=== PATIENT | female | born 1975 | race Caucasian/White ===

== ENCOUNTER → 2023-09-06 14:29 | Outpatient (REF) | payer OTHER, SELFPAY | LOC: RAD 14:29 | PROVIDERS: ATTENDING PHYSICIAN Family Medicine | DX: R14.0 Abdominal distension (gaseous) (principal) | CPT/HCPCS: 74177; Q9967 ==

== ENCOUNTER → 2023-12-14 09:12 | Outpatient (REF) | payer OTHER, SELFPAY | LOC: WDC 09:12 | PROVIDERS: ATTENDING PHYSICIAN Nurse Practitioner Women's Health; FAMILY PHYSICIAN Family Medicine | DX: N64.4 Mastodynia (principal) | CPT/HCPCS: 76642; 77062; 77066 ==

== ENCOUNTER 2024-08-24 23:23 | Observation (INO) | payer OTHER, SELFPAY ==
[2024-08-24 20:32] VITALS: BP 142/78
[2024-08-24 20:52] VITALS: BMI 24.0
[2024-08-24 21:00] VITALS: BP 126/72
[2024-08-24 21:39] LABS: % Basophils 0.9 % (0-2); % Eosinophils 3.9 % (0-6); % Immature Granulocytes 0.4 % (0-0.5); % Lymphocytes 27.9 % (20.5-51.1); % Monocytes 8.2 % (1.7-9.3); % Neutrophils 58.7 % (42.2-75.2); Absolute Basophils 0.1 10^3/uL (0-0.2); Absolute Eosinophils 0.3 10^3/uL (0-0.7); Absolute Lymphocytes 2.3 10^3/uL (1.2-3.4); Absolute Monocytes 0.7 10^3/uL (0.1-0.6); Absolute Neutrophils 4.8 10^3/uL (1.4-6.5); Hematocrit 36.6 % (37.0-47.0); Hemoglobin 12.9 g/dL (12.0-16.0); Mean Corp Hgb Conc. 35.2 g/dL (33.0-37.0); Mean Corpuscular Hgb 31.9 pg (27.0-31.0); Mean Corpuscular Volume 90.4 fL (81.0-99.0); Mean Platelet Volume 9.4 fL (7.4-10.4); Nucleated Red Blood Cells % 0 %; Platelet Count 198 10^3/uL (130-400); Red Blood Cell Count 4.05 10^6/uL (4.20-5.40); White Blood Cell Count 8.2 10^3/uL (4.8-10.8)
--- NOTE | 2024-08-24 21:50 | ED.GENMED ---
History of Present Illness
General
Chief Complaint: Numbness
Source: patient
Exam Limitations: none
Time Seen by Provider: 08/24/24 21:15
Nursing documentation reviewed up to this point in time: agreed with
History of Present Illness
History of Present Illness:
49-year-old female with no reported chronic medical issues presents to the ER for evaluation of left-sided numbness and chest discomfort. Patient reports that she started with numbness and tingling in her left arm. She says that this has
been constant since onset. She says that over the same stretch of time she has had intermittent chest discomfort which she describes as a tightness in her chest associated with palpitations. She says that today around 7 PM she started to also have
numbness in the left leg and with his constellation of symptoms came to the ER to be evaluated. She she does not feel weak on the left side she says. She denies any symptoms on the right side. She denies any headache. She denies any change in
her vision or speech. She denies any shortness of breath, cough or other complaints. Denies having had similar symptoms the past. She denies any known cardiac history, says that she saw [facility] for screening exams in the past but was told
that there were no significant findings.
Past History
Past History
ED Past Medical History: None
ED Past Surgical History: None
Social History
Tobacco: Non-smoker
Alcohol: Occasional
Personal:
Living: with family
Review of Systems
Review of Systems
All Other Systems: ROS reviewed and negative except as documented in HPI and ROS
Constitutional: Denies fever
Respiratory: Denies trouble breathing
Cardiac: Reports chest pain and palpitations
ABD/GI: Denies abdominal pain, nausea or vomiting
: Denies flank pain
Musculoskeletal: Denies neck pain or back pain
Neurological: Reports numbness; Denies dizzy, headache or weakness
Phy Exam
Physical Exam
Physical Exam:
General: Awake, alert, oriented x3; no acute distress
Head: Normocephalic, atraumatic
Eyes: Conjunctiva normal, EOMI, pupils equal round reactive to light bilaterally
Throat: Airway intact, handling secretions
Neck: Trachea midline, supple without meningismus
Lungs: Clear to auscultation bilaterally, no wheezing, rales, rhonchi
Heart: Regular rate and rhythm, no murmurs, gallops, or rubs
Abd: Soft, non distended, nontender, no palpable masses
Neuro: Cranial nerves intact, speech fluent no dysarthria aphasia, no limb ataxia, strength intact proximally and distally in the upper and lower extremities; subjective sensory deficit left upper and lower extremity
Extremities: No edema in extremities, equal pulses in all extremities
Scores
NIH Stroke Score
Level of Consciousness: 0 - Alert
LOC Questions: 0-Answers both correctly
LOC Commands: 0-Performs both correctly
Best Horizontal Gaze: 0-Normal
Visual Mckenzie: 0=Normal, no visual loss
Facial Palsy: 0=Normal, symmetrical
Motor - Right Arm: 0=No drift 10 seconds
Motor - Left Arm: 0=No drift 10 seconds
Motor - Right Le-No drift 5 seconds
Motor - Left Le-No drift 5 seconds
Limb Ataxia: 0-Absent
Sensation: 1-Mild loss
Best Language: 0-No aphasia
Dysarthria: 0-Normal
Extinction and Inattention: 0-No abnormality
Total Score:: 1
Thrombolytic Contraindication
Inclusion and Exclusion criteria reviewed: Yes
Reasons for NON-Tx with Thrombolytics ABSOLUTE Exclusions: Greater than 4.5 hrs from onset of sxs
Heart Failure Risk
Heart Failure Risk Score: Not Applicable
Heart Score for Chest Pain Patients
STEMI patient?: Not applicable
Withdrawal Assessment of Alcohol
Withdrawal Assessment Completed?: Not applicable
Course
Orders/Labs/Results
Orders:
Orders
08/24/24 20:34
Electrocardiogram (*1) Urgent
Reason for Study: Chest Pain
EKG- Treatment ONCE
08/24/24 21:31
Comprehensive Metabolic Panel Urgent
HCG, Serum Qualitative Screen Urgent
Comment: ADD ON
Magnesium Urgent
TSH Reflex To Free T4 Urgent
08/24/24 21:32
Complete Blood Count/With Diff Urgent
08/24/24 21:42
CT Head & Neck Angio W/wo IV Urgent
Comment:
Reason For Exam: left sided numb/weakness
08/24/24 22:00
Troponin I Urgent
08/24/24 22:06
Add On- LAB Urgent
Tests Added?: HCG qual
08/24/24 22:51
Consult Notification Routine
Specialty to Notify: Neurology
NEUROLOGY CONSULT Urgent
Consulting Provider: Bianka Balderas
Was physician already notified: No
Reason for consult: left sided numbness
08/24/24 23:06
Aspirin 325 mg PO NOW STA
Abnormal Lab Results
08/24/24
21:32
RBC 4.05 L 10^6/uL
(4.20-5.40)
Hct 36.6 L %
(37.0-47.0)
MCH 31.9 H pg
(27.0-31.0)
Absolute Monos (auto) 0.7 H 10^3/uL
(0.1-0.6)
08/24/24 21:32
08/24/24 21:31
Vital Signs
Initial and Last Documented VS:
Initial Vital Signs
Temp Pulse Resp Pulse Ox
36.8 C 76 18 99
08/24/24 20:29 08/24/24 20:29 08/24/24 20:29 08/24/24 20:29
Last Documented Vital Signs
Temp Pulse Resp BP Pulse Ox
36.8 C 73 13 129/68 100
08/24/24 20:29 08/24/24 23:13 08/24/24 23:13 08/24/24 23:12 08/24/24 23:13
MDM/Problems Addressed
Differential Diagnosis Includes:
Stroke, brain mass, brain bleed, dissection, complex migraine, MS, radiculopathy, electrolyte derangement
MDM/Problems Addressed:
49-year-old female presents for evaluation of left-sided numbness associated with occasional chest discomfort/palpitations�started with numbness/tingling in the left arm on and this evening started with symptoms in the left leg. Denies
weakness. Denies any other neurologic complaints. Occasional chest discomfort/palpitations as described. Will plan to place an IV check labs including a CBC and CMP. Will check thyroid studies. Check an EKG and a troponin. Will check CTA head
and neck. No stroke alert called with onset of symptoms greater than 24 hours ago.
Labs reviewed: CBC and CMP unremarkable. Troponin undetectable. EKG shows sinus rhythm. CTA head and neck shows basilar stenosis versus congenital hypoplasia but no LVO or other acute abnormalities. No change in symptoms on clinical
reassessment. Given distribution of symptoms will admit to rule out stroke/central process. Monitor on telemetry given her report of occasional palpitations. Treat with aspirin for now. Case discussed with hospitalist.
*Radiology
Radiology exam reviewed: radiology read reviewed
*Pulse Oximetry
Patient hypoxic: no
*EKG
Interpreted by ED Provider?: Yes
Heart Rate: 69
Rate: normal
Rhythm: sinus
[place]: normal axis
Interval: normal interval
QRS Pattern: normal QRS
Ischemia: no ischemia
*Critical Care Note
Total Time (30-74mins, 75-104mins- exclusive of procedures): Not Applicable
Data Reviewed
Source: patient
Patient Management
Discussion with other providers: Hospitalist (Discussed with hospitalist)
Escalation/DeEscalation of care consider admission/obs:
Admission indicated
ED Attending Note
-
Portions of this chart may have been created with voice recognition software.� Occasional wrong word or��sound alike� substitutions may have occurred due to the inherent limitations of voice recognition software.
Discharge Plan
Departure
Patient Disposition: Admit
Date of Disposition: 08/24/24
Time of Disposition: 23:12
Admit to doctor: Justino
Presentation/result/management discussed w/ accepting MD/DO: Hospitalist
Discharge Problem:
Left sided numbness
Referrals:
Rebecca Contreras MD [Family Provider] -
Interventions
Interventions:
*Risk Screen - Suicide Last Done: 08/24/24 20:52
*General Assessment Last Done: 08/24/24 20:31
*Neglect/Abuse Screening Last Done: 08/24/24 20:52
*ED- Fall Risk Assessment Last Done: 08/24/24 20:52
*ED COVID-19 Vaccine History Last Done: 08/24/24 20:31
ED- Neurological Assessment Last Done: 08/24/24 20:52
Discharge Date and Time
Print Language: PUERTO RICAN
[2024-08-24 21:57] LABS: ALT (SGPT) 18 U/L (0-35); AST (SGOT) 25 U/L (14-36); Albumin 4.7 g/dl (3.5-5.0); Alkaline Phosphatase 51 U/L (38-126); Blood Urea Nitrogen 10 mg/dl (7-17); Carbon Dioxide 27 mmol/L (22-30); Chloride 104 mmol/L (98-107); Estimated Creatinine Clearance 98 ml/min; Glucose 97 mg/dl (70-99); Magnesium 2.1 mg/dl (1.6-2.3); Potassium 3.9 mmol/L (3.5-5.1); Sodium 139 mmol/L (135-145); Total Bilirubin 0.7 mg/dl (0.2-1.3); Total Protein 7.1 g/dl (6.3-8.2); eGFR > 60.00
[2024-08-24 22:00] VITALS: BP 154/98
[2024-08-24 22:28] LABS: TSH Reflex To Free T4 4.52 uIU/ml (0.47-4.68)
[2024-08-24 22:31] LABS: Troponin I < 0.012 ng/ml
[2024-08-24 22:36] LABS: HCG, Serum Qualitative Screen Negative
[2024-08-24] MEDS: ASPIRIN 325 MG PO (23:10)
[2024-08-24 23:12] VITALS: BP 129/68
--- NOTE | 2024-08-24 23:43 | HPS.HSE ---
Family Physician
-
Family Physician: Rebecca Contreras
Chief Complaint
-
left sided numbness
History of Present Illness
49-year-old female past medical history SIBO presenting with left-sided numbness and chest discomfort. Started 3 days ago with numbness and tingling in her left arm. Symptoms have been constant since then. She has also had intermittent chest
discomfort described as tightness in her chest associated palpitations. Around 7 PM today she also started having numbness in the left leg. Denies any symptoms on the right side. Denies headache. Denies any change in speech or vision. Denies
vertigo. Denies shortness of breath or cough or other symptoms. Denies similar symptoms in the past. Denies any prior cardiac history.
Patient drinks alcohol occasionally. Denies smoking or any drugs.
Her grandmother had CVA.
Medical History
Past Medical History
Past Medical History: Reports None
Past Surgical History: Reports None
Social History
Tobacco: Non-smoker
Alcohol: Occasional
Drug: None
Family History
Family History: Not pertinent
Allergies / Home Medications
Allergies reflects when Allergies were last updated in [employer].
Home Medications with original date entered in [employer]
Allergy/Medication List:
Allergies
Allergy/AdvReac Type Severity Reaction Status Date / Time
No Known Allergies Allergy Unverified 11/21/10 13:43
Home Medications
No Meds [No Current Medications] 08/24/24
Review of Systems
-
History Source: Patient
A 12 point ROS was completed and negative except as noted: Yes
Constitutional: Reports No Symptoms
EENT: Reports No Symptoms
Respiratory: Reports No Symptoms
Cardiac: Reports No Symptoms
Abdomen/GI: Reports No Symptoms
: Reports No Symptoms
Musculoskeletal: Reports No Symptoms
Skin: Reports No Symptoms
Neurological: Reports See HPI
Endocrine: Reports No Symptoms
Hematologic/Lymphatic: Reports No Symptoms
Psych: Reports No Symptoms
Physical Exam
Vital Signs
Vital Signs
Temp Pulse Resp BP Pulse Ox
98.2 F 73 13 129/68 100
08/24/24 20:29 08/24/24 23:13 08/24/24 23:13 08/24/24 23:12 08/24/24 23:13
Physical Exam
General: Well Developed, Well Nourished and No Apparent Distress
HEENT: NormoCephalic, Moist mucous membranes and Atraumatic
Respiratory: Clear
Cardiac: S1/S2 and Regular Rhythm; No Murmur or Rub
GI: Soft, Non Tender, Non Distended and Normal Bowel Sounds; No Organomegaly
Rectal: Deferred by Provider
Musculoskeletal: No Clubbing, No Cyanosis and No Edema
Skin: No Rash
Neuro: Nonfocal/grossly intact
Laboratory Results
-
08/24/24 21:32
08/24/24 21:31
Laboratory Results
Total Bilirubin 0.7 mg/dl (0.2-1.3) 08/24/24 21:31
AST 25 U/L (14-36) 08/24/24 21:31
ALT 18 U/L (0-35) 08/24/24 21:31
Alkaline Phosphatase 51 U/L (38-126) 08/24/24 21:31
Troponin I < 0.012 ng/ml 08/24/24 22:00
Data Reviewed
-
Lab Data: Labs Reviewed by me
Old Records: Reviewed
Impression/Plan
-
IMPRESSION:
PLAN:
# Possible CVA
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
-NIH of 1 due to loss of sensation in the left side, no other deficits
-CTA head and neck shows multifocal stenosis of the distal basilar artery beginning after the origins of the bilateral superior cerebellar arteries and extending through the basilar tip which may represent hypoplasia, age-indeterminate dissection is
less likely
- Aspirin 325 mg given
- Give Plavix
- Check A1c and lipid panel
- Check MRI brain
- Neurology consulted
# Chest pressure/palpitations
-EKG unremarkable
-Telemetry monitoring
- Trend troponins
History of SIBO
Full code
DVT prophylaxis�SCDs
Regular diet
[2024-08-24] MEDS: PLAVIX 300 MG PO (23:54)
[2024-08-25] VITALS (8 sets, daily range): BP systolic 121–133; BP diastolic 68–87; PULSE 79; O2SAT 100; BMI 24.3
[2024-08-25 03:09] LABS: Troponin I < 0.012 ng/ml
[2024-08-25 06:20] LABS: Hematocrit 38.3 % (37.0-47.0); Hemoglobin 13.4 g/dL (12.0-16.0); Mean Corpuscular Hgb 31.7 pg (27.0-31.0); Mean Corpuscular Volume 90.5 fL (81.0-99.0); Mean Platelet Volume 9.4 fL (7.4-10.4); Platelet Count 196 10^3/uL (130-400); Red Blood Cell Count 4.23 10^6/uL (4.20-5.40); White Blood Cell Count 7.3 10^3/uL (4.8-10.8)
[2024-08-25 06:46] LABS: Blood Urea Nitrogen 7 mg/dl (7-17); Calcium 9.3 mg/dl (8.4-10.2); Carbon Dioxide 23 mmol/L (22-30); Chloride 108 mmol/L (98-107); Estimated Creatinine Clearance 98 ml/min; Glucose 94 mg/dl (70-99); HDL Cholesterol 87 mg/dl; LDL Cholesterol, Calculated 68 mg/dl; Magnesium 2.2 mg/dl (1.6-2.3); Potassium 4.2 mmol/L (3.5-5.1); Sodium 141 mmol/L (135-145); Total Cholesterol 165 mg/dl (50-199); Triglyceride 54 mg/dl (10-149); Very Low Density Lipoprotein 10 mg/dl (0-30); eGFR > 60.00
--- NOTE | 2024-08-25 07:40 | CON.NEURO ---
Consultation
Order
Date of Consultation: 08/25/24
Requesting Provider: Apolinar Shin MD
Reason for Consult: Left-sided numbness
Neurology Consultation Note.
HPI: This is a 49-year-old RH woman who presented to [facility] on August 24, 2024 with sensory symptoms and chest discomfort. According to the patient she developed chest tightness starting on , described as an intermittent
feeling like a band wrapped around her chest, left shoulder and forearm. On Monday night, she developed numbness in her left leg, which prompted her to seek medical attention. The leg numbness lasted for a couple of hours and extended all the way
down her leg. She initially thought it might be related to sleeping position or connected to arm pain from crocheting the previous weekend. The patient describes holding yarn with her left hand and needles in her right while crocheting, causing most
tension in her left arm. Although the numbness has resolved, she reports that her left leg still feels tight.
Ms. French denies experiencing radicular back pain, neck stiffness change in balance or sphincter function. She reportedly had unremarkable cardiac workup in the past.
ER VS: 142/78, 76, afebrile
EKG:NSR, QTc Int : 452 ms
PDMP: None
Labs: Normal sodium, glucose, LFTs, troponin, lipid panel, TSH
CT head wo contrast -no acute abnormalities
PMH:ALEXEI
PSH:none
SH: , vocational teacher; nonsmoker; social ETOH use
FH:CAD
All:NKDA
ROS: Constitutional: Negative. Negative for chills, fever and unexpected weight change.
HENT: Negative for ear pain, hearing loss, tinnitus and trouble swallowing.
Eyes: Negative. Negative for photophobia, pain and visual disturbance.
Respiratory: Negative for cough, choking and shortness of breath.
Cardiovascular: Positive for chest tightness
Gastrointestinal: Negative for abdominal pain and vomiting.
Endocrine: Negative. Negative for cold intolerance.
Genitourinary: Negative for dysuria, flank pain and urgency.
Musculoskeletal: Negative for back pain, gait problem, neck pain and neck stiffness.
Skin: Negative for rash.
Allergic/Immunologic: Negative. Negative for immunocompromised state.
Neurological: Positive for left arm and leg numbness
General: Well developed. In no acute distress.
Cardio: Regular rate and rhythm without murmur. Extremities are without cyanosis or edema.
Neuro:
Mental Status: Alert, oriented to person, place, and date. Normal attention and recall. Good fund of knowledge. Follows complex requests across the midline. Comprehension, naming, and repetition intact. Anxious mood
Cranial Nerves: Pupils are equally round and reactive to light. EOMs full. Visual [place] full to confrontation. No ptosis. No nystagmus. V1-V3 intact to light touch and pinprick bilaterally, symmetric. Face symmetric. Normal hearing AU. The
palate elevated well. SCMs and traps 5/5. Tongue midline. No dysarthria.
Motor: Normal bulk and tone. No pronator or arm drift. Strength 5/5 throughout. No clonus.
Reflexes: 3+ throughout the upper extremities and 3+ knees. 2/2 in AJs. Plantar responses flexor bilaterally. Positive Syeda's bilaterally
Sensory: Normal pinprick, vibration and JPS.
Coordination: No dysmetria or tremor.
Gait: deferred
Assessment and Plan:
I. Intermittent hemisensory symptoms
II. Cervical myelopathy
III. Intermittent chest tightness
-Continue Telemetry monitoring
-Please obtain C-spine MRI without gadolinium
-Please check vitamin B12, folate, [place], ESR, CRP, RPR
-DVT prophylaxis.
I personally reviewed all radiology and labs along with past medical records pertinent to current medical problems. Total time spent in patient care is 60 minutes.
Thank you for allowing us to participate in the care of this patient. We will continue to follow. Please do not hesitate to contact us with any questions or concerns.
Subjective/Objective
Subjective Data
Date of Service: August 25, 2024
Objective Data
Vital Signs
Temp Pulse Resp BP Pulse Ox
36.9 C 67 16 125/68 100
08/25/24 03:56 08/25/24 03:56 08/25/24 03:56 08/25/24 03:56 08/25/24 03:56
Lab Results
08/25/24 05:52
08/25/24 05:52
Sodium 141 mmol/L (135-145) 08/25/24 05:52
Potassium 4.2 mmol/L (3.5-5.1) 08/25/24 05:52
BUN 7 mg/dl (7-17) 08/25/24 05:52
Glucose 94 mg/dl (70-99) 08/25/24 05:52
Calcium 9.3 mg/dl (8.4-10.2) 08/25/24 05:52
LDL Cholesterol, Calc 68 mg/dl 08/25/24 05:52
Patient Allergies
No Known Allergies Allergy (Unverified 11/21/10 13:43)
Medications
-
Active Medications
Generic Name Dose Route Start Last Admin
Trade Name Freq PRN Reason Stop Dose Admin
Acetaminophen 650 mg 08/25/24 01:35
Acetaminophen 650 Mg Rectal Suppository RECTAL 09/22/24 01:34
Q4HPRN PRN
TAY, mild pain, or temp >100.4F
Acetaminophen 650 mg 08/25/24 01:35
Acetaminophen 325 Mg Tablet PO 09/22/24 01:34
Q4HPRN PRN
TAY, mild pain, or temp >100.4F
Aspirin 81 mg 08/25/24 08:00
Aspirin 81 Mg Chewable Tablet PO 09/22/24 07:59
DAILY MERRITT
Atorvastatin Calcium 40 mg 08/25/24 18:00
Atorvastatin (Lipitor) 40 Mg Tablet PO 09/22/24 17:59
QPM MERRITT
Clopidogrel Bisulfate 75 mg 08/25/24 08:00
Clopidogrel 75 Mg Tablet PO 09/22/24 07:59
DAILY MERRITT
Sodium Chloride 0 flush 08/25/24 02:00
Sodium Chloride 0.9% (Flush) Syringe IV 09/22/24 01:59
PER PROTOCOL MERRITT
Home Medications
�Medication �Instructions �Recorded
No Meds [No Current Medications] 08/24/24
Vital Signs and Labs
-
Vital Signs and Labs:
Vital Signs
Temp Pulse Resp BP Pulse Ox
36.9 C 67 16 125/68 100
08/25/24 03:56 08/25/24 03:56 08/25/24 03:56 08/25/24 03:56 08/25/24 03:56
Lab Results
08/25/24 05:52
08/25/24 05:52
Sodium 141 mmol/L (135-145) 08/25/24 05:52
Potassium 4.2 mmol/L (3.5-5.1) 08/25/24 05:52
BUN 7 mg/dl (7-17) 08/25/24 05:52
Glucose 94 mg/dl (70-99) 08/25/24 05:52
Calcium 9.3 mg/dl (8.4-10.2) 08/25/24 05:52
LDL Cholesterol, Calc 68 mg/dl 08/25/24 05:52
Medications
-
Medications:
Generic Name Dose Route Start Last Admin
Trade Name Freq PRN Reason Stop Dose Admin
Acetaminophen 650 mg 08/25/24 01:35
Acetaminophen 650 Mg Rectal Suppository RECTAL 09/22/24 01:34
Q4HPRN PRN
TAY, mild pain, or temp >100.4F
Acetaminophen 650 mg 08/25/24 01:35
Acetaminophen 325 Mg Tablet PO 09/22/24 01:34
Q4HPRN PRN
TAY, mild pain, or temp >100.4F
Aspirin 81 mg 08/25/24 08:00
Aspirin 81 Mg Chewable Tablet PO 09/22/24 07:59
DAILY MERRITT
Atorvastatin Calcium 40 mg 08/25/24 18:00
Atorvastatin (Lipitor) 40 Mg Tablet PO 09/22/24 17:59
QPM MERRITT
Clopidogrel Bisulfate 75 mg 08/25/24 08:00
Clopidogrel 75 Mg Tablet PO 09/22/24 07:59
DAILY MERRITT
Sodium Chloride 0 flush 08/25/24 02:00
Sodium Chloride 0.9% (Flush) Syringe IV 09/22/24 01:59
PER PROTOCOL MERRITT
Home Medications
-
Home Medications
No Meds [No Current Medications] 08/24/24
[2024-08-25] MEDS: LOW STRENGTH ASPIRIN 81 MG PO (08:43)
[2024-08-25] MEDS: PLAVIX 75 MG PO (08:43)
[2024-08-25 08:58] LABS: Troponin I < 0.012 ng/ml
[2024-08-25 11:10] LABS: Creatine Phosphokinase 39 U/L (30-135)
[2024-08-25 11:14] LABS: C-Reactive Protein < 5.00 mg/L (0.0-10.00)
[2024-08-25 11:28] LABS: Erythrocyte Sed Rate 11 mm/hour (0-20)
--- NOTE | 2024-08-25 12:08 | PTOTSP ---
Patient with good tolerance for functional mobility, transfers and elevations. Did not demonstrate LOB, dizziness or report any symptoms throughout.
Does not demonstrate need for further skilled therapy at this time and will be discharged.
If needs change, please re-consult.
--- NOTE | 2024-08-25 12:15 | W.PN.HOSP.TC ---
Today's Communication/Plan
-
Follow-up MRI C-spine
neurochecks
Assessment / Plan
Assessment / Plan
#Paresthesia of left upper extremity
-Differential diagnoses include peripheral neuropathy versus radiculopathy versus myelopathy
-NIHSS score 1 due to the loss of sensation on LUE; MRI brain today negative for CVA
-Was initiated on DAPT and high intensity statin due to concerns of hypoplastic basilar artery
-Neurology following, ordered MRI cervical spine w/o contrast, will follow-up results
-Will check vitamin B12 level, B1 levels, folate, magnesium level, ESR, CRP, RPR
-Consider outpatient follow-up for EMG/NCS if workup here negative
-Continue with neurochecks
#Multifocal stenosis of basilar artery
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
-MRI without any signs of CVA; does not seem to correlate with the paresthesia that brought her here
-Was initiated on DAPT and high intensity statin with concerns for CVA; MRI negative; Plavix held
-Will continue with high intensity statin and aspirin for now
#Chest pressure and palpitations
-Likely related to radiculopathy/myelopathy versus anxiety
-ECG was unremarkable, troponin negative x3
-Continue on telemetry
#H/O SIBO
-Not currently on any medications
-No known history of scleroderma or other associated conditions
-No signs of flare at this time
Diet: Regular
DVT prophylaxis: SQ Lovenox
CODE STATUS: Full code
Anticipated Discharge: Within 24 hours
Subjective/Interval History
-
Date of Service: August 25, 2024
Seen and examined at the bedside. No acute events reported overnight. AFVSS this morning
MRI of the brain was negative for any acute CVA findings. MRI C-spine pending
Denies any new complaints since admission
Objective Data
-
Labs:
Laboratory Results
08/25/24
05:52
WBC 7.3
Hgb 13.4
Hct 38.3
Plt Count 196
Sodium 141
Potassium 4.2
Chloride 108 H
Carbon Dioxide 23
BUN 7
Creatinine 0.6
Glucose 94
Calcium 9.3
Vital Signs:
Vital Signs
Temp Pulse Resp BP Pulse Ox
97.8 F 78 18 123/75 98
08/25/24 07:45 08/25/24 07:45 08/25/24 07:45 08/25/24 07:45 08/25/24 08:50
Review of Systems
-
History Source: Patient
All other systems: Reviewed and negative
Physical Exam
-
General: Well Developed, Well Nourished, No Apparent Distress and Comfortable
HEENT: Normocephalic, Atraumatic, Moist Mucous Membranes and Anicteric
Respiratory: Clear to Auscultation and Non Labored Respirations
Cardiac: Regular Rhythm and S1/S2; Negative Murmur, Rub or Gallop
GI: Soft, Nontender, Nondistended and Normal Bowel Sounds
Musculoskeletal: No Clubbing, No Cyanosis and No Edema
Skin: Warm and Dry; Negative Rash
Neuro: AO x 3, No Motor Deficits, Central Nerve's Intact, DTR's Intact & Symmetrica and Other (Reduced sensation to distal LUE); Negative Tremors or Facial Droop
Psych: Calm
Data Reviewed
-
MRI: Report Reviewed by me and Discussed with Physician (Neurology)
Labs: Labs Reviewed by me and Discussed with Patient
--- NOTE | 2024-08-25 12:15 | CM ---
CM following re: discharge planning.
Reviewed pt's chart, met with OBS status and pt and pt's at bedside. OBS status reviewed, OBS letter placed on chart, pt has a copy.
Pt is a 49 year old female, admitted with primary dx of Possible CVA. 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 MRI today.
Pt lives with in a 2SH, 3 steps to enter, has supportive son. 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
PT and OT evaluations noted, Pt has no PT/OT skilled needs, independent with functional ability.
PCP: Rebecca Contreras
Pharmacy: [facility]
D/C plan: home with anticipated no needs. to transport at discharge.
CM will follow with discharge plan updates as needed.
[2024-08-25 12:20] LABS: Folate 7.5 ng/ml (2.76-20); Vitamin B12 249 pg/ml (239-931)
--- NOTE | 2024-08-25 13:06 | PTOTSP ---
Speech Pathology Evaluation
49F with admission for lt sided numbness demonstrates a functional oropharyngeal swallow. MRI negative. No overt concerns for aspiration this date. HEALTH SAFETY ENGINEER service to s/o. Please re-consult if overt s/s of aspiration arise.
Recommend:
1. Regular textures, thin liquids
2. Meds whole with thin liquid wash
3. HEALTH SAFETY ENGINEER service to s/o - Please re-consult if overt s/s of aspiration arise.
[2024-08-25] MEDS: CYANOCOBALAMIN 1000 MCG IM (14:46)
--- NOTE | 2024-08-25 14:53 | W.DCSUMMARY ---
Discharge Summary
Discharge Data
Date of Admission: 08/25/24
Date of Discharge: 08/25/24
Total time spent discharging patient (in min): 32
-
Pending Results: No
Hospital Course
Discharging physician: Ari Vargas DO
Disposition: Home
Principal discharge diagnosis:
Paresthesia of left-sided extremities
Noncardiac chest pain
Vitamin B12 deficiency
Thyroid nodule (5 mm, normal TSH)
Chronic discharge diagnosis:
H/O SIBO
Hospital course:
49-year-old female that presented to the hospital with numbness to her left sided arm and leg. Symptoms started 3 days prior to arrival and more constant since that time, also complained of intermittent chest discomfort and palpitations. Symptoms
initially started in the left upper extremity and then progressed to the left lower extremity which prompted her to come to the ED for evaluation. No headache, no speech or vision changes, no vertiginous symptoms. Upon arrival CT head did not show
any signs of ICH, transcortical infarcts, mass effect. 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 MRI of the brain did not show any signs of acute CVA. MRI of the C-spine was performed to assess for cervical
myelopathy/radiculopathy. Was able to ambulate and had improved symptoms during hospitalization. 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 Lipid panel with HDL >LDL in normal range. Biochemical assessment was
positive for vitamin B12 deficiency. Was given 1 dose of 1000 mcg IM B12 in the hospital and transition to 1000 mcg oral daily at time of discharge. Should have repeat B12 levels in 3 months
Consultants:
Neurology: Real Balderas MD
Imaging findings:
Head/neck CTA (08/24/24)
IMPRESSION:Very small caliber of the distal basilar artery from the origins of the bilateral superior cerebellar arteries through the basilar tip. Hypoplasia in the setting of bilateral persistent posterior cerebral arteries is favored,
although an age-indeterminate dissection would be an alternative consideration. No other evidence for high-grade stenosis or occlusion in the [place] or the arterial vasculature of the neck
Brain MRI without contrast (08/25/24)
FINDINGS: The ventricles and sulci are normal in size and configuration. Single 0.4 cm focus of FLAIR hyperintense signal in the white matter of the inferior right frontal lobe, of doubtful clinical significance. No mass effect, midline shift, or
extra axial collection. No abnormal signal intensity on diffusion-weighted images. The vascular flow voids at the skull base are unremarkable, as far as visualized. The paranasal sinuses and mastoids are clear.
MRI C-spine without contrast (08/25/2024)
FINDINGS/impression: The cervical cord is normal in size and signal intensity. The craniocervical junction is unremarkable. No significant degenerative disc space narrowing. Normal vertebral stature. No focal protrusion. No central canal stenosis.
No significant foraminal stenosis. Incidental small T2 hyperintense right thyroid nodule measuring 5 mm.
Procedure findings: N/A
Follow-up:
Follow-up with family doctor in 1 to 2 weeks from discharge
Continue aspirin 81 mg daily
Continue cyanocobalamin 1000 mcg daily
+/- Thyroid ultrasound
Discharge Plan
-
Patient Disposition: Home (Routine Discharge)
Discharge Diagnosis/Procedures: Paresthesia of left arm and leg
Chest pain
Vitamin B12 deficiency
Thyroid nodule
Condition: Good
Diet: No restrictions
Activity: As tolerated
Driving Restrictions: As prior to admission
Bathing Restrictions: None
Blood Work: Repeat B12 levels in 3 months with PCP
Others Tests: Possible thyroid ultrasound�to be ordered by PCP if needed
Activity Restrictions/Additional Instructions:
Schedule follow-up appointment with your family doctor, should be seen in the office within 1 to 2 weeks of discharge from the hospital
Instructions: Neuropathic pain, Peripheral neuropathy
Referrals:
Rebecca Contreras MD [Family Provider] -
Additional Discharge Medication Instructions: Continue aspirin 81 mg daily due to likely congenital abnormality of basilar artery seen on CT scan
Start vitamin B12 1000 mcg daily
Prescriptions:
New
aspirin 81 mg Tablet,Chewable
81 mg PO DAILY 30 Days Qty: 30 0RF
cyanocobalamin (vitamin B-12) 1,000 mcg tablet extended release
1,000 mcg PO DAILY 30 Days Qty: 30 0RF
Discharge Orders:
Discharge Patient (As Directed); Ordered 08/25/24
Ordered By: Ari Vargas
Discharge Date and Time
Print Language: ESTONIAN
[2024-08-27 12:18] LABS: Syphilis/T. pallidum Ab Reflex Negative (Negative)
== END 2024-08-25 16:47 | disposition home or self-care (01) ==
LOC: 4 EAST ACU 23:23
PROVIDERS: Physician Assistant Medical; ADMITTING PHYSICIAN Hospitalist; ATTENDING PHYSICIAN Internal Medicine; CONSULT PHYSICIAN Psychiatry & Neurology Neurology; EMERGENCY PHYSICIAN Emergency Medicine; FAMILY PHYSICIAN Family Medicine
DX: I65.1 Occlusion and stenosis of basilar artery (principal); R20.0 Anesthesia of skin; G95.9 Disease of spinal cord, unspecified; R07.89 Other chest pain; R00.2 Palpitations; E53.8 Deficiency of other specified B group vitamins; E04.1 Nontoxic single thyroid nodule; Z79.82 Long term (current) use of aspirin
CPT/HCPCS: 70496; 70498; 70551; 72141; 80048; 80053; 80061; 82550; 82607; 82746; 83036; 83735; 84425; 84443; 84484; 84703; 85025; 85027; 85652; 86140; 86780; 92610; 93005; 97116; 97163; 97166; 99285; G0378; Q9967

== ENCOUNTER → 2025-01-20 19:04 | Outpatient (REF) | payer OTHER, SELFPAY | LOC: WDC 19:04 | PROVIDERS: ATTENDING PHYSICIAN Physician Assistant Surgical; FAMILY PHYSICIAN Family Medicine | DX: Z12.31 Encounter for screening mammogram for malignant neoplasm of breast (principal) | CPT/HCPCS: 77063; 77067 ==

== ENCOUNTER → 2025-04-29 13:05 | Outpatient (REF) | payer OTHER, SELFPAY | LOC: WDC 13:05 | PROVIDERS: ATTENDING PHYSICIAN Physician Assistant Surgical; FAMILY PHYSICIAN Family Medicine | DX: R92.2 Inconclusive mammogram (principal) | CPT/HCPCS: 76641 ==